=== PATIENT | male | born 1950 | race Two or more races ===

== ENCOUNTER 2018-07-21 07:28 | Outpatient (CLI) | payer OTHER | END 2018-07-21 07:33 | disposition home or self-care (01) | LOC: RAD 07:28 → LAB 07:28 | DX: D68.8 Other specified coagulation defects (principal); E78.2 Mixed hyperlipidemia; N39.0 Urinary tract infection, site not specified; I10 Essential (primary) hypertension; R07.89 Other chest pain ==

== ENCOUNTER 2018-07-29 07:22 | Inpatient (IN) | payer OTHER ==
[2018-08-05] MEDS ORDERED: COUMADIN5 MG PO (10:23)
[2018-08-06] MEDS ORDERED: NeurRONTin 100mg cap PO (14:17)
[2018-08-06] MEDS ORDERED: NORFLEX100MG PO (14:17)
[2018-08-06] MEDS ORDERED: OXYC1TAB9 PO (14:18)
[2018-08-06] MEDS ORDERED: XARELTO20 MG PO (14:18)
== END 2018-08-06 16:55 | DRG 470 ==
LOC: SURH 08-03 07:00 → O/R 08-04 07:05 → SURG 08-04 07:05
PROVIDERS: ADMIT Orthopaedic Surgery
PROC: 0SRC0J9 Replacement of Right Knee Joint with Synthetic Substitute, Cemented, Open Approach (ICD-10-PCS; principal; 2018-08-04 16:15)
DX: M17.11 Unilateral primary osteoarthritis, right knee (principal); Q21.2 Atrioventricular septal defect; D62 Acute posthemorrhagic anemia; I48.2 Chronic atrial fibrillation; M25.461 Effusion, right knee; Z95.0 Presence of cardiac pacemaker; Z79.01 Long term (current) use of anticoagulants

== ENCOUNTER → 2019-02-04 | Outpatient (CLI) | payer OTHER ==
[~2019-02-04] MED LIST: COUMADIN5 MG PO; NORFLEX100MG PO; NeurRONTin 100mg cap PO; OXYC1TAB9 PO; XARELTO20 MG PO
== END | disposition home or self-care (01) ==
LOC: RAD 13:39
DX: M25.561 Pain in right knee (principal); M25.562 Pain in left knee

== ENCOUNTER 2022-09-04 08:28 | Outpatient (CLI) | payer OTHER | END 2022-09-04 14:39 | disposition home or self-care (01) | LOC: RAD 08:28 | PROVIDERS: ATTEND Internal Medicine Cardiovascular Disease | DX: M12.9 Arthropathy, unspecified (principal); M46.48 Discitis, unspecified, sacral and sacrococcygeal region ==

== ENCOUNTER 2025-05-09 06:50 | Emergency (ER) | payer OTHER ==
[~2025-05-09] VITALS: Ht 185.4 cm; Wt 82.6 kg
[2025-05-09] MEDS ORDERED: LIDOCAINE HCL 1% 10ML VIAL PERCUT ONE (08:30)
[2025-05-09] MEDS ORDERED: CEFTRIAXONE SODIUM 1,000 MG VIAL IM ONE (08:30)
[2025-05-09] MEDS ORDERED: CEPHALEXIN500 M1 PO (09:51)
[2025-05-09] MEDS ORDERED: PEPCID AC20 MG PO (09:51)
== END 2025-05-09 10:06 | disposition home or self-care (01) ==
LOC: ER 06:51
DX: S61.411A Laceration without foreign body of right hand, initial encounter (principal); W45.8XXA Other foreign body or object entering through skin, initial encounter; Y93.89 Activity, other specified; Y92.832 Beach as the place of occurrence of the external cause; Y99.8 Other external cause status; Z88.1 Allergy status to other antibiotic agents
CPT/HCPCS: 12002; 96372; 99282; J0696